=== PATIENT | female | born 1960 | race Caucasian/White ===

== ENCOUNTER → 2018-05-07 07:57 | Outpatient (CLI) | payer OTHER, SELFPAY ==
[2018-05-07 09:02] LABS: Free T4, Direct Thyroxine 0.85 ng/dL (0.78-2.19)
[2018-05-07 09:15] LABS: Thyroid Stimulating Hormone 7.35 uIU/mL (0.47-4.68)
[2018-05-07 09:16] LABS: Cortisol AM (Before 10AM) 8.37 ug/dL (4.46-22.7)
== END ==
PROVIDERS: Visit Provider Internal Medicine Endocrinology, Diabetes & Metabolism
DX: E03.9 Hypothyroidism, unspecified (principal)
CPT/HCPCS: 36415; 82533; 84439; 84443

== ENCOUNTER → 2019-05-26 13:35 | Outpatient (ROUT) | payer OTHER, SELFPAY ==
[2019-05-26 14:02] LABS: Add Manual Diff / Slide Review NO; Basophils Absolute Auto 0 /uL (0-100); Basophils Percent Auto 0.6 % (0-2); Eosinophils Absolute Auto 100 /uL (0-450); Eosinophils Percent Auto 1.6 % (2-4); Hemoglobin 14.7 g/dL (12.0-16.0); Lymphocytes Absolute Auto 1300 /uL (1100-4500); Lymphocytes Percent Auto 20.2 % (25-40); Mean Corpuscular HGB Conc 34.2 % (30-36); Mean Corpuscular Hemoglobin 30.5 PG (26-34); Mean Corpuscular Volume 89.4 fL (80-100); Monocytes Absolute Auto 500 /uL (0-900); Monocytes Percent Auto 8.2 % (3-14); Neutrophils Absolute Auto 4400 /uL (1500-7000); Neutrophils Percent Auto 69.4 % (50-75); Platelet Count 302 X10^3/uL (150-400); Red Blood Cell Count 4.82 X10^6/uL (4.0-5.2); Red Cell Distribution Width 12.8 % (11.6-14.8); White Blood Cell Count 6.3 X10^3/uL (4.5-11.0)
[2019-05-26 14:13] LABS: HEMOLYSIS < 15 (0-50); Iron 100 ug/dL (37-170)
[2019-05-26 14:19] LABS: Hemoglobin A1C% w Est Avg Glu 5.3 % (4.0-6.0)
[2019-05-26 14:20] LABS: Alanine Aminotransferase 21 IU/L (<35); Albumin 4.3 g/dL (3.5-5.0); Albumin Globulin Ratio 1.5 (1.0-2.8); Alkaline Phosphatase 70 U/L (38-126); Aspartate Aminotransferase 27 IU/L (14-36); Bilirubin Total 0.3 mg/dL (0.2-1.3); Blood Urea Nitrogen 14 mg/dL (7-17); C-Reactive Protein Quant 0.9 mg/dL (<1.0); Calcium 9.7 mg/dL (8.4-10.2); Carbon Dioxide 27 mmol/L (22-32); Chloride 105 mmol/L (98-107); Cholesterol 227 mg/dL (140-199); Estimated Glomerular Filt Rate > 60.0 mL/min (>60); Globulin 2.8 g/dL (1.7-4.1); Glucose 95 mg/dL (80-110); HDL Cholesterol 59 mg/dL (40-60); HEMOLYSIS < 15 (0-50); LDL Cholesterol Calculated 106 mg/dL (<100); Potassium 4.3 mmol/L (3.4-5.1); Sodium 140 mmol/L (137-145); Total Protein 7.1 g/dL (6.3-8.2); Triglycerides 311 mg/dL (35-150)
[2019-05-26 14:24] LABS: Percent Iron Saturation 37 % (15-50); Total Iron Binding Capacity 272 ug/dL (265-497); Transferrin 238 mg/dL (206-381)
[2019-05-26 14:50] LABS: Ferritin 66.5 ng/mL (11.1-264)
[2019-05-26 16:10] LABS: Vitamin D 25 Hydroxy (D3) 34.7 ng/mL (30.0-100.0)
== END ==
PROVIDERS: Visit Provider Internal Medicine
DX: Z13.1 Encounter for screening for diabetes mellitus (principal); R07.9 Chest pain, unspecified; E83.119 Hemochromatosis, unspecified; M85.80 Other specified disorders of bone density and structure, unspecified site; E03.9 Hypothyroidism, unspecified
CPT/HCPCS: 80053; 80061; 82306; 82728; 83036; 83090; 83540; 83550; 84443; 85025; 86140

== ENCOUNTER → 2019-06-23 08:34 | Outpatient (CLI) | payer OTHER, SELFPAY ==
--- NOTE | 2019-06-23 | DI.ECHO.S_ITS ---
[facility]+ [facility] +---------+ : : [address] : : [place] : : : : [id number] : : : : Phone: [phone]+ Echocardiogram Report + + :Name: RADHA CASTANO Study Date: 06/23/2019 Height: 56 in : :[facility] Weight: 172 lb : : Gender: Female BSA: 1.7 m2 : :: 1960 Age: 58 yrs BP: 116/74 mmHg: :Reason For Study: Chest pain : : Performed By: [facility] Staff : :Referring: MABEL HERNANDEZ : + + Interpretation Summary Normal sinus rhythm. Normal LV size, wall thickness, wall motion and LV systolic function. EF is 60-65%. Normal chamber sizes. No significant valvular abnormalities. No source for chest pain identified. Compared to prior study no changes have occurred. Procedure: A two-dimensional transthoracic echocardiogram with color flow and Doppler was performed. The study quality was technically adequate. Prior echo performed on 06/25/16. The patient was in normal sinus rhythm during the exam. Left Ventricle: The left ventricle is normal in size. There is normal left ventricular wall thickness. Left ventricular systolic function is normal. The ejection fraction is estimated to be 60-65%. Left ventricular wall motion is normal. Right Ventricle: The right ventricle is normal in size and function. Atria: The left atrial size is normal. The right atrium is normal in size. The interatrial septum is intact with no evidence for an atrial septal defect. Mitral Valve: The mitral valve is normal in structure and function. There is no mitral regurgitation noted. Aortic Valve: The aortic valve is trileaflet. The aortic valve opens well. No aortic regurgitation is present. Tricuspid Valve: The tricuspid valve is normal in structure and function. No tricuspid regurgitation. Pulmonic Valve: The pulmonic valve is normal in structure and function. There is trace pulmonic regurgitation. Great Vessels: The aortic root is normal size. The dimensions of the ascending aorta are normal. The pulmonary artery is normal size. The IVC is of normal diameter and collapses greater than 50% with a sniff. This suggests a low right atrial pressure of 3 mm Hg. Pericardium/ Pleura There is no pericardial effusion. There is no pleural effusion. MMode/2D Measurements & Calculations LVIDd: 4.4 cm LVOT diam: 2.2 cm LVIDs: 2.8 cm Ao root diam: 3.0 cm FS: 35.6 % EPSS: 0.40 cm IVSd: 0.93 cm LVPWd: 0.89 cm LV nj. diameter/BSA (cm/m^2): 2.6 LV sys. diameter/BSA (cm/m^2): 1.7 LA A2 area: 11.2 cm2 RA long axis: 4.8 cm LA A4 area: 13.8 cm2 RA area: 15.3 cm2 LA length (vol): 3.5 cm RA vol: 41.2 ml LA vol: 37.1 ml RA : 24.7 ml/m2 LA vol index: 22.3 ml/m2 TAPSE: 2.2 cm Doppler Measurements & Calculations Ao V2 max: 98.7 cm/sec LVOT Max Manav: 82.5 cm/sec Ao V2 mean: 71.6 cm/sec LV V1 max P.7 mmHg Ao max P.9 mmHg LV V1 VTI: 17.8 cm Ao mean P.3 mmHg CHARLENE(I,D): 3.1 cm2 Ao V2 VTI: 22.2 cm CHARLENE(V,D): 3.3 cm2 sev ratio: 0.80 CHARLENE indexed to BSA (cm^2/m^2): 1.9 MV E max manav: 76.4 cm/sec PA V2 max: 60.7 cm/sec MV A max manav: 67.1 cm/sec PA V2 mean: 44.1 cm/sec MV E/A: 1.1 PA mean P.88 mmHg Med Peak E' Manav: 7.6 cm/sec PA Accel Time: 0.14 sec E/E' med: 10.0 Lat Peak E' Manav: 10.1 cm/sec E/E' lat: 7.5 E/e' average: 8.8 MV dec time: 0.23 sec SV(LVOT): 69.8 ml Electronically signed by: Loni Gaston M.D. on Reading Physician:06/23/2019 06:52 PM
== END ==
PROVIDERS: PCP Internal Medicine; Referring Provider Nurse Practitioner; Visit Provider Internal Medicine
DX: R07.9 Chest pain, unspecified (principal)
CPT/HCPCS: 93306

== ENCOUNTER → 2021-01-25 07:35 | Outpatient (CLI) | payer OTHER, MEDICAID, SELFPAY ==
[2021-01-25 08:24] LABS: Add Manual Diff / Slide Review NO; Basophils Absolute Auto 0 /uL (0-100); Basophils Percent Auto 0.9 % (0-2); Eosinophils Absolute Auto 100 /uL (0-450); Eosinophils Percent Auto 2.7 % (2-4); Hematocrit 39.6 % (36-46); Hemoglobin 13.3 g/dL (12.0-16.0); Lymphocytes Absolute Auto 1600 /uL (1100-4500); Lymphocytes Percent Auto 31.6 % (25-40); Mean Corpuscular HGB Conc 33.5 % (30-36); Mean Corpuscular Volume 89.4 fL (80-100); Monocytes Absolute Auto 500 /uL (0-900); Monocytes Percent Auto 9.1 % (3-14); Neutrophils Absolute Auto 2800 /uL (1500-7000); Neutrophils Percent Auto 55.7 % (50-75); Platelet Count 268 X10^3/uL (150-400); Red Blood Cell Count 4.43 X10^6/uL (4.0-5.2); Red Cell Distribution Width 13.7 % (11.6-14.8)
[2021-01-25 08:32] LABS: HEMOLYSIS < 15 (0-50); Hemoglobin A1C% w Est Avg Glu 5.3 % (4.0-6.0); Iron 77 ug/dL (37-170)
[2021-01-25 08:39] LABS: Alanine Aminotransferase 13 IU/L (<35); Albumin 3.8 g/dL (3.5-5.0); Albumin Globulin Ratio 1.4 (1.0-2.8); Alkaline Phosphatase 47 U/L (38-126); Aspartate Aminotransferase 19 IU/L (14-36); BUN Creatinine Ratio 25.4 (6-22); Bilirubin Total 0.3 mg/dL (0.2-1.3); Blood Urea Nitrogen 16 mg/dL (7-17); C-Reactive Protein Quant 0.7 mg/dL (<1.0); Calcium 9.1 mg/dL (8.4-10.2); Carbon Dioxide 24 mmol/L (22-32); Chloride 109 mmol/L (98-107); Cholesterol 232 mg/dL (140-199); Estimated Glomerular Filt Rate > 60.0 mL/min (>60); Globulin 2.8 g/dL (1.7-4.1); Glucose 93 mg/dL (80-110); HDL Cholesterol 66 mg/dL (40-60); HEMOLYSIS < 15 (0-50); LDL Cholesterol Calculated 143 mg/dL (<100); Potassium 3.9 mmol/L (3.4-5.1); Sodium 138 mmol/L (137-145); Total Protein 6.6 g/dL (6.3-8.2); Triglycerides 117 mg/dL (35-150)
[2021-01-25 08:43] LABS: Percent Iron Saturation 33 % (15-50); Total Iron Binding Capacity 230 ug/dL (265-497); Transferrin 163 mg/dL (206-381)
[2021-01-25 09:08] LABS: Cortisol AM (Before 10AM) 17.8 ug/dL (4.46-22.7)
[2021-01-25 09:12] LABS: Ferritin 98 ng/mL (11-264)
[2021-01-26 15:45] LABS: Insulin Level Total 8.1 uIU/mL (2.6-24.9)
[2021-01-28 10:58] LABS: Cholesterol, Total 232 mg/dL (100-199); HDL-Cholesterol 67 mg/dL (>39); HDL-Particle (Total) 32.8 umol/L (>=30.5); LDL Particle 1446 nmol/L (<1000); LDL Size 21.6 nm (>20.5); LDL-Cholsterol 145 mg/dL (0-99); LP-IR Score 30 (<=45); Small LDL- Particle 379 nmol/L (<=527); Triglycerides 113 mg/dL (0-149)
== END ==
PROVIDERS: PCP Family Medicine; Referring Provider Family Medicine; Visit Provider Family Medicine
DX: E78.5 Hyperlipidemia, unspecified (principal); Z13.1 Encounter for screening for diabetes mellitus; R25.2 Cramp and spasm; G89.29 Other chronic pain
CPT/HCPCS: 36415; 80053; 80061; 82533; 82728; 83036; 83525; 83540; 83550; 83704; 85025; 86140

== ENCOUNTER → 2021-10-03 09:23 | Outpatient (CLI) | payer OTHER, MEDICAID, SELFPAY ==
--- NOTE | 2021-10-03 | DI.RAD.S_ITS ---
PROCEDURE: XR THORACIC SPINE 3V INDICATIONS: SCREENING FOR RHEUMATIC DISORDER TECHNIQUE: 2 views of the thoracic spine were acquired. COMPARISON: None. FINDINGS: Bones: Convex right thoracolumbar scoliosis present. No vertebral anomalies. Space narrowing and marginal osteophyte noted in the mid thoracic spine. No compression fractures. Soft tissues: No paravertebral stripe thickening. Atherosclerotic vascular calcification noted in the aortic arch. IMPRESSION: Degenerative disc disease and thoracolumbar dextroscoliosis Approved by: Logan Mclean M.D. on 10/03/2021 at 10:13
--- NOTE | 2021-10-03 | DI.RAD.S_ITS ---
PROCEDURE: XR KNEE LT 3V INDICATIONS: SCREENING FOR RHEUMATIC DISORDER TECHNIQUE: 3 views of the knee were acquired. COMPARISON: None. FINDINGS: Bones: No fractures or dislocations. No suspicious bony lesions. Soft tissues: No joint effusion. No suspicious soft tissue calcifications. IMPRESSION: No suspicious bony lesions to suggest erosive arthritis. No joint effusion or joint space narrowing. Dictated by: Joanie Ortiz M.D. on 10/03/2021 at 11:02 Approved by: Joanie Ortiz M.D. on 10/03/2021 at 11:03
--- NOTE | 2021-10-03 | DI.RAD.S_ITS ---
PROCEDURE: XR HAND LT MIN 3V INDICATIONS: SCREENING FOR RHEUMATIC DISORDER TECHNIQUE: 3 views of the hand(s) acquired. COMPARISON: [facility], CR, XR HAND RT MIN 3V, 10/03/2021, 9:37. FINDINGS: Bones: No fractures or dislocations. Carpal bones are normally aligned. No suspicious bony lesions. Minimal scattered IP degenerative narrowing. Mild 1st CMC narrowing is present. No periarticular osteophytes or erosions are identified. Soft tissues: No suspicious soft tissue calcifications. IMPRESSION: Minimal scattered IP degenerative narrowing. No visualized erosions. Dictated by: Sandra Rojas M.D. on 10/03/2021 at 10:56 Approved by: Sandra Rojas M.D. on 10/03/2021 at 10:57
--- NOTE | 2021-10-03 | DI.RAD.S_ITS ---
PROCEDURE: XR LUMBAR SPINE MIN 4V INDICATIONS: SCREENING FOR RHEUMATIC DISORDER TECHNIQUE: 5 views of the lumbar spine were acquired, including bilateral oblique views. COMPARISON: None. FINDINGS: Bones: 5 nonrib-bearing vertebrae are present. There is normal bony alignment. No vertebral body compression fractures. No suspicious bony lesions. Convex left lumbar scoliosis noted. Hypertrophic facet joints and disc space narrowing present in the lower lumbar spine. Oblique images unremarkable. Soft tissues: Overlying bowel gas pattern is normal. No suspicious soft tissue calcifications. Moderate fecal debris in the colon. Oblique images: No pars defects. IMPRESSION: 1. Degenerative disc disease and arthropathy in the lower lumbar spine. 2. Moderate fecal debris throughout the colon. Approved by: Logan Mclean M.D. on 10/03/2021 at 9:39
--- NOTE | 2021-10-03 | DI.RAD.S_ITS ---
PROCEDURE: XR HAND RT MIN 3V INDICATIONS: SCREENING FOR RHEUMATIC DISORDER TECHNIQUE: 3 views of the hand(s) acquired. COMPARISON: None. FINDINGS: Bones: No fractures or dislocations. Carpal bones are normally aligned. No suspicious bony lesions. Minimal scattered IP degenerative narrowing is present. There is a periarticular lucency with marginated defined margins at the base of the 5th proximal phalanx. Soft tissues: No suspicious soft tissue calcifications. IMPRESSION: IP scattered degenerative narrowing most consistent with arthritis. Periarticular lucency at the base of the 5th proximal phalanx. This could represent an erosion secondary to gout or potentially erosive arthritis. Dictated by: Sandra Rojas M.D. on 10/03/2021 at 10:57 Approved by: Sandra Rojas M.D. on 10/03/2021 at 11:00
--- NOTE | 2021-10-03 | DI.RAD.S_ITS ---
PROCEDURE: XR CERVICAL SPINE 4V OR 5V INDICATIONS: SCREENING FOR RHEUMATIC DISORDER TECHNIQUE: 5 views of the cervical spine acquired. COMPARISON: None. FINDINGS: Bones: No fractures or dislocations to the T1 level. Oblique images demonstrate no bony foraminal stenoses. Straightening the normal cervical lordosis present. Grade 1 anterior spondylolisthesis present at C4-5. Disc space narrowing and anterior osteophytes noted in the lower lumbar spine. Oblique images unremarkable Soft tissues: No prevertebral soft tissue swelling. IMPRESSION: Multilevel degenerative disc disease and arthropathy results in straightening the normal cervical lordosis, and grade 1 anterior spondylolisthesis C4-5 Approved by: Logan Mclean M.D. on 10/03/2021 at 9:36
--- NOTE | 2021-10-03 | DI.RAD.S_ITS ---
PROCEDURE: XR SACROILIAC JOINT MIN 3V INDICATIONS: SCREENING FOR RHEUMATIC DISORDER TECHNIQUE: 3 views of the sacroiliac joints were acquired. COMPARISON: [facility], CR, XR LUMBAR SPINE MIN 4V, 10/03/2021, 9:37. FINDINGS: Bones: No bony erosions or ankylosis. No suspicious bony lesions. No fractures. Degenerative joint space narrowing and small marginal osteophyte noted at the pubic symphysis Soft tissues: Overlying bowel gas pattern is normal. No suspicious soft tissue densities. IMPRESSION: Unremarkable sacroiliac joints Approved by: Logan Mclean M.D. on 10/03/2021 at 9:57
--- NOTE | 2021-10-03 | DI.RAD.S_ITS ---
PROCEDURE: XR HIP W PEL IF DONE CARRIE MIN 4V INDICATIONS: SCREENING FOR RHEUMATIC DISORDER TECHNIQUE: AP pelvis with lateral view(s) of the bilateral hip(s). COMPARISON: None. FINDINGS: Bones: Bilateral moderate joint space narrowing and mild subchondral sclerosis noted. Tiny marginal osteophytes present. Pubis symphysis also shows joint space narrowing with marginal osteophyte. Sacroiliac joints unremarkable. Soft tissues: The visualized bowel gas pattern is normal. No suspicious soft tissue calcifications. IMPRESSION: Mild degenerative osteoarthritic changes Approved by: Logan Mclean M.D. on 10/03/2021 at 9:38
--- NOTE | 2021-10-03 | DI.RAD.S_ITS ---
PROCEDURE: XR KNEE RT 3V INDICATIONS: SCREENING FOR RHEUMATIC DISORDER TECHNIQUE: 3 views of the knee were acquired. COMPARISON: None. FINDINGS: Bones: No acute fracture or dislocation. There are small intercondylar osteophytes. No suspicious bony lesions. No bony erosions or osteopenia. There is a non unified tibial tubercle which is an incidental finding. Soft tissues: No joint effusion. No suspicious soft tissue calcifications. IMPRESSION: Mild degenerative change. No findings to suggest erosive arthritis. Dictated by: Joanie Ortiz M.D. on 10/03/2021 at 11:03 Approved by: Joanie Ortiz M.D. on 10/03/2021 at 11:04
== END ==
PROVIDERS: PCP Family Medicine; Referring Provider Specialist/Technologist Athletic Trainer; Visit Provider Specialist/Technologist Athletic Trainer
DX: Z13.89 Encounter for screening for other disorder (principal); M12.9 Arthropathy, unspecified; R93.89 Abnormal findings on diagnostic imaging of other specified body structures; M50.30 Other cervical disc degeneration, unspecified cervical region; M47.812 Spondylosis without myelopathy or radiculopathy, cervical region; M43.12 Spondylolisthesis, cervical region; M47.816 Spondylosis without myelopathy or radiculopathy, lumbar region; M51.36 Other intervertebral disc degeneration, lumbar region; M51.34 Other intervertebral disc degeneration, thoracic region; M41.85 Other forms of scoliosis, thoracolumbar region
CPT/HCPCS: 72050; 72072; 72110; 72202; 73130; 73522; 73562

== ENCOUNTER → 2022-03-17 10:52 | Outpatient (CLI) | payer OTHER, MEDICAID, SELFPAY ==
--- NOTE | 2022-03-17 10:55 | DI.RAD.S_ITS ---
PROCEDURE: XR CERVICAL SPINE 4V OR 5V INDICATIONS: CERVICALGIA TECHNIQUE: 5 views of the cervical spine acquired. COMPARISON: [facility], CR, XR CERVICAL SPINE 4V OR 5V, 10/03/2021, 9:37. FINDINGS: Bones: No acute fractures or dislocations to the T1 level. There is straightening of the normal cervical lordosis. Mild grade 1 anterolisthesis of C4 on C5 measuring 2 mm appears unchanged when compared to the prior exam from 10/03/2021. Disc space narrowing and degenerative endplate changes are most prominent at the C5-6 level. There is multilevel uncovertebral joint and facet hypertrophy. Oblique images demonstrate moderate narrowing of the right C5-6 and C6-7 neural foramina as well as the left neural foramina from C2-3 through C6-7. Small cervical ribs are seen at C7. Soft tissues: No prevertebral soft tissue swelling. IMPRESSION: 1. Multilevel spondylosis with multilevel neural foraminal narrowing. Cervical spine MRI could be performed for further evaluation if indicated clinically. 2. Unchanged grade 1 anterolisthesis of C4 on C5. Dictated by: Daquan Whiting M.D. on 03/17/2022 at 11:51 Approved by: Daquan Whiting M.D. on 03/17/2022 at 11:56
== END ==
PROVIDERS: PCP Family Medicine; Referring Provider Family Medicine; Visit Provider Family Medicine
DX: M54.2 Cervicalgia (principal); M43.12 Spondylolisthesis, cervical region; M48.02 Spinal stenosis, cervical region
CPT/HCPCS: 72050

== ENCOUNTER → 2023-06-19 07:50 | Outpatient (CLI) | payer OTHER, MEDICAID, SELFPAY ==
[2023-06-19 08:37] LABS: Hemoglobin A1C% w Est Avg Glu 5.5 % (4.0-6.0)
[2023-06-19 08:44] LABS: Alanine Aminotransferase 18 IU/L (<35); Albumin 4.1 g/dL (3.5-5.0); Albumin Globulin Ratio 1.3 (1.0-2.8); Alkaline Phosphatase 50 U/L (38-126); Aspartate Aminotransferase 23 IU/L (14-36); BUN Creatinine Ratio 19.1 (6-22); Bilirubin Total 0.4 mg/dL (0.2-1.3); Blood Urea Nitrogen 13 mg/dL (7-17); Calcium 9.4 mg/dL (8.4-10.2); Carbon Dioxide 26 mmol/L (22-32); Chloride 106 mmol/L (98-107); Cholesterol 217 mg/dL (140-199); Estimated Glomerular Filt Rate > 60 mL/min (>60); Globulin 3.1 g/dL (1.7-4.1); Glucose 95 mg/dL (80-110); HDL Cholesterol 70 mg/dL (40-60); HEMOLYSIS < 15 (0-50); LDL Cholesterol Calculated 121 mg/dL (<100); Potassium 4.3 mmol/L (3.4-5.1); Sodium 136 mmol/L (137-145); Total Protein 7.2 g/dL (6.3-8.2); Triglycerides 129 mg/dL (35-150); VLDL Cholesterol Calculated 26 mg/dL (2-30)
== END ==
PROVIDERS: PCP Family Medicine; Referring Provider Family Medicine; Visit Provider Family Medicine
DX: E03.9 Hypothyroidism, unspecified (principal); R73.03 Prediabetes; E78.2 Mixed hyperlipidemia
CPT/HCPCS: 36415; 80053; 80061; 83036; 84443

== ENCOUNTER → 2023-09-25 07:47 | Outpatient (CLI) | payer MEDICARE, SELFPAY ==
[2023-09-25 09:50] LABS: Cholesterol 216 mg/dL (140-199); HDL Cholesterol 76 mg/dL (40-60); LDL Cholesterol Calculated 113 mg/dL (<100); Triglycerides 135 mg/dL (35-150); VLDL Cholesterol Calculated 27 mg/dL (2-30)
== END ==
PROVIDERS: PCP Family Medicine; Referring Provider Physician Assistant Medical; Visit Provider Physician Assistant Medical
DX: Z13.220 Encounter for screening for lipoid disorders (principal)
CPT/HCPCS: 36415; 80061

== ENCOUNTER → 2023-11-20 13:35 | Outpatient (CLI) | payer MEDICARE, SELFPAY ==
--- NOTE | 2023-11-20 13:37 | DI.US.S_ITS ---
PROCEDURE: US SOFT TISSUE HEAD AND NECK INDICATIONS: Localized swelling, mass and lump, neck TECHNIQUE: Real-time scanning was performed of the neck region of interest, with image documentation. COMPARISON: None. FINDINGS: There are morphologically normal left cervical lymph nodes in the area of clinical concern. No sonographic abnormality visualized. IMPRESSION: Morphologically normal left cervical lymph nodes corresponding to area of clinical concern. Approved by: Licha Schultz M.D.,Ph.D. on 11/20/2023 at 22:34
== END ==
PROVIDERS: PCP Family Medicine; Referring Provider Family Medicine; Visit Provider Family Medicine
DX: R22.1 Localized swelling, mass and lump, neck (principal)
CPT/HCPCS: 76536

== ENCOUNTER → 2024-04-05 07:52 | Outpatient (CLI) | payer MEDICARE, SELFPAY ==
[2024-04-05 09:06] LABS: Add Manual Diff / Slide Review NO; Basophils Absolute Auto 0 /uL (0-100); Basophils Percent Auto 0.7 % (0-2); Eosinophils Absolute Auto 100 /uL (0-450); Eosinophils Percent Auto 1.7 % (2-4); Hematocrit 40.4 % (36-46); Hemoglobin 13.6 g/dL (12.0-16.0); Lymphocytes Absolute Auto 1300 /uL (1100-4500); Mean Corpuscular HGB Conc 33.7 % (30-36); Mean Corpuscular Hemoglobin 29.9 PG (26-34); Mean Corpuscular Volume 88.8 fL (80-100); Monocytes Absolute Auto 500 /uL (0-900); Monocytes Percent Auto 9.1 % (3-14); Neutrophils Absolute Auto 3500 /uL (1500-7000); Neutrophils Percent Auto 64.5 % (50-75); Platelet Count 288 X10^3/uL (150-400); Red Blood Cell Count 4.55 X10^6/uL (4.0-5.2); Red Cell Distribution Width 13.6 % (11.6-14.8); White Blood Cell Count 5.4 X10^3/uL (4.5-11.0)
[2024-04-05 09:23] LABS: Hemoglobin A1C% w Est Avg Glu 5.5 % (4.0-6.0)
[2024-04-05 09:33] LABS: Alanine Aminotransferase 20 IU/L (<35); Albumin Globulin Ratio 1.5 (1.0-2.8); Alkaline Phosphatase 51 U/L (38-126); Aspartate Aminotransferase 25 IU/L (14-36); BUN Creatinine Ratio 18.1 (6-22); Bilirubin Total 0.4 mg/dL (0.2-1.3); Blood Urea Nitrogen 13 mg/dL (7-17); Calcium 9.8 mg/dL (8.4-10.2); Carbon Dioxide 29 mmol/L (22-32); Chloride 103 mmol/L (98-107); Cholesterol 217 mg/dL (140-199); Estimated Glomerular Filt Rate > 60 mL/min (>60); Globulin 2.7 g/dL (1.7-4.1); Glucose 95 mg/dL (80-110); HDL Cholesterol 67 mg/dL (40-60); HEMOLYSIS < 15 (0-50); LDL Cholesterol Calculated 124 mg/dL (<100); Potassium 4.6 mmol/L (3.4-5.1); Sodium 136 mmol/L (137-145); Total Protein 6.7 g/dL (6.3-8.2); Triglycerides 130 mg/dL (35-150); VLDL Cholesterol Calculated 26 mg/dL (2-30)
[2024-04-07 07:11] LABS: Parathyroid Hormone Int 22 pg/mL (15-65)
[2024-04-10 19:34] LABS: Vitamin D 25 Hydroxy (D3) 23.5 ng/mL (30.0-100.0)
[2024-04-10 19:48] LABS: Thyroid Stimulating Hormone 7.08 uIU/mL (0.47-4.68)
== END ==
PROVIDERS: PCP Family Medicine; Referring Provider Family Medicine; Visit Provider Family Medicine
DX: R00.2 Palpitations (principal); R73.03 Prediabetes; G89.29 Other chronic pain; R22.1 Localized swelling, mass and lump, neck; E03.9 Hypothyroidism, unspecified; E55.9 Vitamin D deficiency, unspecified; E78.2 Mixed hyperlipidemia
CPT/HCPCS: 36415; 80053; 80061; 82306; 83036; 83970; 84443; 85025

== ENCOUNTER → 2024-05-03 11:02 | Outpatient (CLI) | payer MEDICARE, SELFPAY ==
--- NOTE | 2024-05-03 11:04 | DI.CT.S_ITS ---
PROCEDURE: CT ANGIO NECK INDICATIONS: CAROTID STENOSIS TECHNIQUE: After the administration of intravenous contrast, 1.5 mm axial sections acquired from the aortic arch to the Josephine of [place]. Maximum intensity projection (MIP) reformats were then performed. COMPARISON: Outside [facility], MR, MR CERVICAL SPINE WITHOUT CONTRAST, 08/15/2022, 11:17. [facility], US, US SOFT TISSUE HEAD AND NECK, 11/20/2023, 14:14. [facility], CT, CT SOFT TISSUE NECK W CON, 05/03/2024, 11:36. FINDINGS: Image quality: There is artifact associated with the metallic hardware. Artifact from the metallic hardware is reduced by metal reconstruction algorithm. Carotid system: The great vessels demonstrate a conventional anatomy as they arise from the aortic arch. The origins of the common carotid arteries appear patent. The common carotid arteries demonstrate normal calibers and courses. The bifurcation regions appear normal bilaterally. The internal carotid arteries demonstrate normal caliber and course. Posterior circulation: The origins of the vertebral arteries both appear widely patent. The more superior extracranial portions of both vertebral arteries also demonstrate normal courses and calibers. The left vertebral artery is dominant to the right. Soft tissues: Visualized neck soft tissues demonstrate no suspicious abnormalities. The thyroid gland demonstrates no significant abnormality. Bones: No suspicious bony lesions. Visualized cervical spine appears normally aligned. Moderate cervical spine degenerative change is seen. IMPRESSION: No carotid stenosis is seen. No significant abnormality is seen within the arteries of the neck. Additional findings: Moderate cervical spine degenerative change Any quantitative stenosis measurements were performed using the NASCET criteria. Dictated by: Han Emerson M.D. on 05/03/2024 at 13:38 Approved by: Han Emerson M.D. on 05/03/2024 at 13:41
== END ==
PROVIDERS: PCP Family Medicine; Referring Provider Physical Medicine & Rehabilitation; Visit Provider Physical Medicine & Rehabilitation
DX: M47.22 Other spondylosis with radiculopathy, cervical region (principal)
CPT/HCPCS: 70498; Q9967

== ENCOUNTER → 2024-05-03 11:04 | Outpatient (CLI) | payer MEDICARE, SELFPAY ==
--- NOTE | 2024-05-03 11:06 | DI.CT.S_ITS ---
PROCEDURE: CT SOFT TISSUE NECK W CON INDICATIONS: MASS OF NECK TECHNIQUE: After the administration of intravenous contrast, 3.0 mm axial sections acquired from the sella to the aortic arch. Additional oblique axial 3.0 mm sections acquired through the pharynx. 3 mm thick coronal and sagittal reformats were generated. For radiation dose reduction, the following was used: automated exposure control. COMPARISON: [facility], CR, XR CERVICAL SPINE 4V OR 5V, 03/17/2022, 10:57. [facility] [place], RF, CERVICAL SPINE INTERLAMINAR, 04/05/2024, 13:02. [facility], CT, CT ANGIO NECK, 05/03/2024, 11:36. [facility], US, US SOFT TISSUE HEAD AND NECK, 11/20/2023, 14:14. FINDINGS: Image quality: Excellent. Lymph nodes: No enlarged lymph nodes seen throughout the neck. Borderline prominent lymph nodes can be seen on both sides of the neck, without suspicious features. Vessels: Visualized vasculature appears patent. Neck spaces: Scrutiny is given to the marked area of clinical concern, as marked on series 4, image 41. Within this region, no focal abnormalities are seen. There is a normal appearing left submandibular lymph node and a normal appearing sternocleidomastoid muscle seen. Borderline prominent lymph nodes are also seen within this region. The oropharynx, nasopharynx, and pharynx demonstrate no mucosal lesions. The vocal cords, false vocal cords, pyriform sinuses, epiglottis, vallecula, and tongue base all appear normal. Glands: The parotid and submandibular glands appear normal. Thyroid gland demonstrates no significant abnormality. Miscellaneous: Visualized brain and orbits appear normal. Lung apices appear clear. Superficial soft tissues appear normal. Bones: No suspicious bony lesions. Visualized sinuses and mastoids appear unremarkable. Moderate cervical spine degenerative change is seen. IMPRESSION: No mass, lymph node, or other suspicious abnormality can be seen at the marked area of clinical concern. No masses or enlarged lymph nodes can be seen throughout the neck. Dictated by: Han Emerson M.D. on 05/03/2024 at 13:41 Approved by: Han Emerson M.D. on 05/03/2024 at 13:43
== END ==
PROVIDERS: PCP Family Medicine; Referring Provider Family Medicine; Visit Provider Family Medicine
DX: M47.22 Other spondylosis with radiculopathy, cervical region (principal); R22.1 Localized swelling, mass and lump, neck
CPT/HCPCS: 70491; 70498; Q9967

== ENCOUNTER → 2025-04-14 08:40 | Outpatient (CLI) | payer MEDICARE, MEDICAID, SELFPAY ==
[2025-04-14 09:11] LABS: Add Manual Diff / Slide Review NO; Hematocrit 41.1 % (36-46); Hemoglobin 13.7 g/dL (12.0-16.0); Lymphocytes Absolute Auto 1400 /uL (1100-4500); Mean Corpuscular HGB Conc 33.4 % (30-36); Mean Corpuscular Hemoglobin 29.2 PG (26-34); Mean Corpuscular Volume 87.4 fL (80-100); Platelet Count 298 X10^3/uL (150-400)
[2025-04-14 09:42] LABS: Hemoglobin A1C% w Est Avg Glu 5.6 % (4.0-6.0)
[2025-04-14 09:44] LABS: Alanine Aminotransferase 19 IU/L (<35); Albumin 4.2 g/dL (3.5-5.0); Albumin Globulin Ratio 1.6 (1.0-2.8); Alkaline Phosphatase 60 U/L (38-126); Blood Urea Nitrogen 12 mg/dL (7-17); Calcium 9.5 mg/dL (8.4-10.2); Carbon Dioxide 25 mmol/L (22-32); Chloride 106 mmol/L (98-107); Cholesterol 198 mg/dL (140-199); Estimated Glomerular Filt Rate > 60 mL/min (>60); Globulin 2.7 g/dL (1.7-4.1); Glucose 96 mg/dL (70-99); HDL Cholesterol 71 mg/dL (40-60); HEMOLYSIS < 15 (0-50); Potassium 4.3 mmol/L (3.4-5.1); Sodium 138 mmol/L (137-145); Total Protein 6.9 g/dL (6.3-8.2); Triglycerides 121 mg/dL (35-150)
[2025-04-14 09:59] LABS: Thyroid Stimulating Hormone 2.69 uIU/mL (0.47-4.68)
[2025-04-14 10:09] LABS: Vitamin D 25 Hydroxy (D3) 31.9 ng/mL (30.0-100.0)
== END ==
PROVIDERS: PCP Family Medicine; Referring Provider Family Medicine; Visit Provider Family Medicine
DX: E03.9 Hypothyroidism, unspecified (principal); R73.03 Prediabetes; E55.9 Vitamin D deficiency, unspecified; E78.2 Mixed hyperlipidemia; R00.2 Palpitations
CPT/HCPCS: 36415; 80053; 80061; 82306; 83036; 84443; 85025